=== PATIENT | female | born 1940 | race Caucasian/White ===

== ENCOUNTER 2022-05-12 09:32 | Emergency (ER) | payer MEDICARE ==
[~2022-05-12] VITALS: Ht 154.9 cm; Wt 72.6 kg
[~2022-05-12 09:32] MED LIST: ASPI-556 PO; CALC1TAB2 PO; CIPR500T10 PO; ESCI-8 PO; HYDR12.530 PO; LACT1CAP78 PO; LOSA100T59 PO; MEMA28CA PO; MULT-1278 PO; NEBI10TA PO; NITR100C PO; ONDA8TAB12 PO; TRAM50TA4 PO
[2022-05-12 09:54] LABS: BASOPHILS % (AUTO) 0.7 % (0.0-5.0); EOSINOPHILS % (AUTO) 1.7 % (0.0-8.0); LYMPHOCYTES % (AUTO) 18.9 % (21.0-51.0); MEAN CORPUSCULAR HEMOGLOBIN 32.7 pg (27.0-33.0); MEAN CORPUSCULAR HGB CONC 34.8 g/dL (32.0-36.0); MEAN CORPUSCULAR VOLUME 94.1 fL (79-99); MONOCYTES % (AUTO) 5.8 % (3.0-13.0); NEUTROPHILS % (AUTO) 72.7 % (40.0-77.0); PLATELET COUNT (AUTO) 218 K/uL (130-400); RED BLOOD CELL COUNT(AUTO) 4.25 MIL/uL (4.00-5.50); RED CELL DISTRIBUTION WIDTH 13.6 % (11.0-15.5); WHITE BLOOD COUNT (AUTO) 8.1 K/uL (4.8-10.8)
[2022-05-12] MEDS ORDERED: LACTATED RINGERS 1000ML 1,000 ML IV ONE (10:00)
[2022-05-12 10:04] LABS: CARBON DIOXIDE 32 mmol/L (21-32); CHLORIDE 101 mmol/L (101-111); CREATININE 0.9 mg/dL (0.5-1.5); GLOMERULAR FILTR. RATE CALC 64 mL/min (>60); GLUCOSE,RANDOM 128 mg/dL (70-105); POTASSIUM 3.7 mmol/L (3.5-5.1); SODIUM SERUM 139 mmol/L (136-145); UREA NITROGEN, BLOOD 16 mg/dL (7-18)
[2022-05-12 10:16] LABS: ALANINE AMINOTRANSFERASE 29 U/L (12-78); ALBUMIN 3.6 g/dL (3.5-5.0); ASPARTATE AMINOTRANSFERASE 18 U/L (10-37); CREATINE KINASE, TOTAL 97 U/L (21-232); MYOGLOBIN 180 ng/mL (10-92)
[2022-05-12 10:20] LABS: PROTHROMBIN TIME 10.9 SEC (9.6-11.6)
[2022-05-12 10:22] LABS: PARTIAL THROMBOPLASTIN TIME 29.3 SEC (26.3-35.5)
[2022-05-12 10:26] LABS: APPEARANCE,URINE CLEAR (CLEAR); BILIRUBIN,URINE NEGATIVE (NEGATIVE); COLOR,URINE LIGHT-YELLOW (YELLOW); GLUCOSE, URINE (UA) NEGATIVE (NEGATIVE); KETONES,URINE NEGATIVE (NEGATIVE); LEUKOCYTE ESTERASE ,URINE NEGATIVE Leu/uL (NEGATIVE); NITRATE,URINE NEGATIVE (NEGATIVE); OCCULT BLOOD,URINE NEGATIVE (NEGATIVE); PROTEIN,URINE NEGATIVE (NEGATIVE); UROBILINOGEN,URINE 0.2 mg/dL (0.2-1.0)
[2022-05-12] MEDS ORDERED: IOHEXOL 350 MG/ML 100ML INFUS..BTL IV ONE (10:47)
[2022-05-12] MEDS ORDERED: OCTYL 2-CYANOACRYLATE 1 EACH TP ONE ×2 (12:21→12:25)
[2022-05-12] MEDS ORDERED: ACETAMINOPHEN 325 MG TAB PO ONE (12:30)
[2022-05-12] MEDS ORDERED: DIPH,PERTUSS(ACELL),TET VAC/PF 0.5 ML VIAL IM ONE (13:30)
[2022-05-12 14:14] VITALS: BP 155/62
[2022-06-14] MEDS ORDERED: MOLN200C PO (00:48)
== END 2022-05-12 14:08 | disposition home or self-care (01) ==
LOC: EDH 09:32 → MERGE 09:32 → EDH 14:08
DX: S01.112A Laceration without foreign body of left eyelid and periocular area, initial encounter (principal); S01.311A Laceration without foreign body of right ear, initial encounter; R41.0 Disorientation, unspecified; F03.90 Unspecified dementia, unspecified severity, without behavioral disturbance, psychotic disturbance, mood disturbance, and anxiety; Z88.5 Allergy status to narcotic agent; W18.39XA Other fall on same level, initial encounter; Y93.89 Activity, other specified; Y92.89 Other specified places as the place of occurrence of the external cause; Y99.8 Other external cause status
CPT/HCPCS: 99285; 82550; 83874; 84484 ×2; 80053; 85025; 85610; 85730; 86850; 86900; 86901; 81003; 36415; 71045; 70450; 72125; 71270; 70486; 74178; 96360; 12001; J7120; Q9967; 90715